=== PATIENT | male | born 1980 | race Caucasian/White ===

== ENCOUNTER 2018-07-18 13:46 | Emergency (ER) | payer OTHER ==
--- NOTE | 2018-07-18 14:33 | ED Physician Documentation ---
General Adult - HISTORIAN Historian: patient - HPI Stated Complaint: scalp laceration Chief Complaint: General Adult Onset: hours Timing: still present Severity: mild Further Comments: yes (Pt is a 37 yo male with a scalp laceration on the crown of his head. Pt walked under a metal pipe and struck the top of his head on the pipe. Pt denies LOC and neck pain. No headache. Tetanus is utd.) - ROS CONST: no problems EYES/ENT: none CVS/RESP: none GI/: none MS/SKIN/LYMPH: other (scalp laceration) - PAST HX Past History: other (ortho surgery) - SOCIAL HX Smoking History: non-smoker - FAMILY HX Family History: No - REVIEWED ASSESSMENTS Nursing Assessment Reviewed: Yes Vitals Reviewed: Yes Procedures Wound Location: head (scalp over crown of head) Wound Length: 5 cm Wound's Depth, Shape: superficial Wound Explored: no foreign body removed Irrigated w/ Saline (ccs): 50 Betadine Prep?: Yes (hibiclens) Wound Debrided: minimal Wound Repaired With: nabor (6) Layer Closure?: No Progress - Progress Progress: Triple Antibiotic applied in ER. Apply topical antibiotic such as Neosporin, Bacitracin, or Triple Antibiotic to affected area twice daily for 7 days. Follow up with primary provider in 7 days for staple removal. General Adult Physical Exam - PHYSICAL EXAM GENERAL APPEARANCE: no distress EENT: eye inspection normal NECK: normal inspection, supple RESPIRATORY: no resp distress, chest non-tender, breath sounds normal CVS: reg rate & rhythm, heart sounds normal, equal pulses BACK: normal inspection SKIN: other (V-shaped scalp laceration, crown of head, 5 cm.) EXTREMITIES: non-tender, normal range of motion, no evidence of injury NEURO: oriented X3, CN's nml as tested, motor nml, sensation nml Discharge Clincal Impression: Scalp laceration Qualifiers: Encounter type: initial encounter Qualified Code(s): S01.01XA - Laceration without foreign body of scalp, initial encounter Condition: Good Disposition: 01 HOME, SELF-CARE Decision to Admit: NO Decision Time: 14:33
[2018-07-18 15:18] VITALS: BP 138/92
== END 2018-07-18 15:16 | disposition home or self-care (01) ==
LOC: ED 13:46
DX: S01.01XA Laceration without foreign body of scalp, initial encounter (principal); W22.8XXA Striking against or struck by other objects, initial encounter; Y93.01 Activity, walking, marching and hiking; Y92.9 Unspecified place or not applicable
CPT/HCPCS: 12002; 99282